=== PATIENT | male | born 1970 | race Caucasian/White ===

== ENCOUNTER 2016-09-28 16:23 | Emergency (ER) | payer OTHER ==
[~2016-09-28] VITALS: Ht 172.7 cm; Wt 79.4 kg
[~2016-09-28 16:23] MED LIST: IBUPROFEN PO; ZITHROMAX PO
[2016-09-28] MEDS ORDERED: LOPRESSOR5 MG/5 M1 (16:26)
[2016-09-28] MEDS ORDERED: LISINOPRIL2.5 MG (16:26)
[2016-09-28] MEDS ORDERED: ASPIR-TRIN325 MG (16:26)
[2016-09-28] MEDS ORDERED: LIPITOR80 MG (16:26)
== END 2016-09-28 16:54 | disposition home or self-care (01) ==
LOC: SED 16:23
DX: J01.00 Acute maxillary sinusitis, unspecified (principal); I10 Essential (primary) hypertension; I25.10 Atherosclerotic heart disease of native coronary artery without angina pectoris; Z90.89 Acquired absence of other organs; Z79.1 Long term (current) use of non-steroidal anti-inflammatories (NSAID); Z79.82 Long term (current) use of aspirin; Z79.899 Other long term (current) drug therapy
CPT/HCPCS: 99283